=== PATIENT | female | born 1960 ===

== ENCOUNTER 2017-06-17 14:26 | Emergency (ER) | payer OTHER ==
[~2017-06-17] VITALS: Ht 167.6 cm; Wt 68.9 kg
[~2017-06-17 14:26] MED LIST: ENALAPRIL MALEA10 MG NGT; IBUPROFEN800 MG PO; SEPTRA DS TABLE1 TAB PO
[2017-06-17] MEDS ORDERED: AVAPRO75 MG (14:43)
== END 2017-06-17 23:04 | disposition home or self-care (01) ==
LOC: ER 14:26
DX: T23.262A Burn of second degree of back of left hand, initial encounter (principal); X10.2XXA Contact with fats and cooking oils, initial encounter; Y93.89 Activity, other specified; Y92.090 Kitchen in other non-institutional residence as the place of occurrence of the external cause; Y99.8 Other external cause status

== ENCOUNTER 2021-06-17 07:32 | Outpatient (CLI) | payer OTHER ==
[~2021-06-17 07:32] MED LIST changes: +AVAPRO75 MG
== END 2021-06-17 08:01 | disposition home or self-care (01) ==
LOC: SONOGRAMA 07:32
PROVIDERS: ATTEND Obstetrics & Gynecology Gynecology
DX: R31.21 Asymptomatic microscopic hematuria (principal); R93.429 Abnormal radiologic findings on diagnostic imaging of unspecified kidney; M25.861 Other specified joint disorders, right knee

== ENCOUNTER 2021-07-10 07:11 | Outpatient (CLI) | payer OTHER | END 2021-07-10 07:22 | disposition home or self-care (01) | LOC: MRI 07:11 | PROVIDERS: ATTEND Obstetrics & Gynecology Gynecology | DX: R10.2 Pelvic and perineal pain (principal); N84.0 Polyp of corpus uteri; N83.291 Other ovarian cyst, right side; N83.292 Other ovarian cyst, left side | CPT/HCPCS: 72197 ==